=== PATIENT | female | born 1990 | race Caucasian/White ===

== ENCOUNTER 2017-02-17 10:34 | Day surgery (SDC) | payer OTHER ==
[~2017-02-17 10:34] MED LIST: Buffered Lidocaine 0.9% SYRIN* 5 ML/SYR SYRINGE INTRADERM ONE; Famotidine IV* 10 MG/ML 2 ML (20 mg) IV ONE
[2017-02-17 10:44] LABS: Manual Entry Verification ABI0007; UR Preg Internal Control QC Line Present
[2017-02-17] MEDS ORDERED: Famotidine IV* 10 MG/ML 2 ML (20 mg) ONE (11:04)
[2017-02-17] MEDS ORDERED: Buffered Lidocaine 0.9% SYRIN* 5 ML/SYR SYRINGE ONE (11:05)
[2017-02-17] MEDS ORDERED: fentaNYL* 50 MCG/ML 2 ML VIAL (100 MCG VIAL) ONE (12:05)
[2017-02-17] MEDS ORDERED: Midazolam* 1 MG/ML 5 ML VIAL (5 MG) ONE (12:05)
[2017-02-17] MEDS ORDERED: Lidocaine 2% PF * 5 ML VIAL ONE (12:05)
[2017-02-17] MEDS ORDERED: Propofol* 10 MG/ML 20 ML BTL IV PUSH ONE (12:05)
[2017-02-17] MEDS ORDERED: Ondansetron INJ* 2 MG/ML VIAL ONE (12:05)
[2017-02-17] MEDS ORDERED: Oxymetazoline 0.05% NASAL SPR* 15 ML BTL ONE (12:23)
[2017-02-17] MEDS ORDERED: Lidocaine 1.5% EPI 1:200,000* 30 ML SDV ONE (12:23)
[2017-02-17] MEDS ORDERED: Bacitracin OINTMENT* 1 TUBE ONE (12:23)
[2017-02-17] MEDS ORDERED: Lidocaine 1% INJ* 10 MG/ML 30 ML SDV ONE (12:23)
[2017-02-17] MEDS ORDERED: Lidocaine 4% TOPICAL* 50 ML TOP.SOLN ONE (12:23)
[2017-02-17] MEDS ORDERED: Levalbuterol 0.63MG/3ML NEB INH PRN (12:39)
[2017-02-17] MEDS ORDERED: DiMENhydriNATE IV* 50 MG/ML VIAL IV PUSH PRN (12:39)
[2017-02-17] MEDS ORDERED: fentaNYL* 50 MCG/ML 2 ML VIAL (100 MCG VIAL) IV PRN (12:39)
[2017-02-17 14:12] VITALS: BP 149/88
--- NOTE | 2017-02-18 01:17 | OP ---
DATE OF OPERATION: 02/17/17 - [facility] DATE OF : 86 SURGEON: Dontae Valentine MD ANESTHESIOLOGIST: Mathew Morgan MD ANESTHESIA: General laryngeal mask airway anesthesia. PRE-OP DIAGNOSES: Bilateral inferior turbinate hypertrophy. POST-OP DIAGNOSES: Bilateral inferior turbinate hypertrophy. OPERATIVE PROCEDURE: Bilateral inferior turbinate reductions using the nasal debrider under general laryngeal mask airway anesthesia. COMPLICATIONS: None. DISPOSITION: Good. SPECIMENS: None. BLOOD LOSS: Minimal. DESCRIPTION OF PROCEDURE: The patient was taken to the operating room, placed in the supine positron on the operating table, maintained with laryngeal mask airway anesthesia. Nose was packed bilaterally with cottonoids impregnated with oxymetazoline and 1% lidocaine. After several minutes, these were removed and inferior turbinates were injected with lidocaine with epinephrine. Incisions were made in the anterior-inferior turbinates and the caudal elevator was used to elevate the mucosa off the bone, and the turbinate debrider blade was inserted in this pocket and the submucosa was debrided. The inferior turbinates were then outfractured. The patient tolerated this well, no complications, and transferred to recovery room in stable condition. [id number]/CPS #: [id number] MTDD
== END 2017-02-17 13:55 | disposition home or self-care (01) ==
LOC: OR 10:34
PROVIDERS: ATTEND Otolaryngology
DX: J34.3 Hypertrophy of nasal turbinates (principal); R09.81 Nasal congestion; I10 Essential (primary) hypertension; G47.33 Obstructive sleep apnea (adult) (pediatric); J45.909 Unspecified asthma, uncomplicated
CPT/HCPCS: 81025; A9270-GY; J2001; J2250; J2405; J2704; J3010

== ENCOUNTER 2017-03-07 10:25 | Emergency (ER) | payer OTHER ==
[2017-03-07] MEDS ORDERED: Morphine INJ* 4 MG/ML 1 ML SYRINGE IV ONE (11:36)
[2017-03-07] MEDS ORDERED: Ondansetron INJ* 2 MG/ML VIAL IV ONE (11:36)
[2017-03-07] MEDS ORDERED: NS 0.9% 1000 ML* 1,000 ML IV ONE (11:36)
[2017-03-07 11:55] LABS: Hematocrit 44 % (35-47); Hemoglobin 14.7 g/dl (12.0-16.0); Mean Corpuscular HGB Conc 33 g/dl (31-36); Mean Corpuscular Hemoglobin 29 pg (27-31); Mean Corpuscular Volume 89 fL (80-97); Mean Platelet Volume 8 um3 (7.4-10.4); Red Cell Distribution Width 14 % (10.5-15); White Blood Count 13.1 10^3/ul (3.5-10.8)
--- NOTE | 2017-03-07 12:13 | RAD ---
Indication: Right upper quadrant pain. Real-time sonography of the right upper quadrant was performed. The liver is normal in size. No focal lesions or intrahepatic ductal dilatation is noted. The common duct measures 3 mm. The gallbladder demonstrates multiple echogenic foci consistent with cholelithiasis. No pericholecystic fluid or wall thickening is identified. The right kidney measures 11.3 x 4.7 x 4.5 cm. No hydronephrosis is noted. The pancreas demonstrates no mass or pancreatic duct dilatation. Aorta and inferior vena cava are unremarkable. IMPRESSION: Cholelithiasis without evidence of biliary ductal dilatation.
[2017-03-07 12:14] LABS: ALT 27 U/L (7-52); AST 18 U/L (13-39); Albumin 4.4 g/dL (3.2-5.2); Alkaline Phosphatase 61 U/L (34-104); Anion Gap 7 mmol/L (2-11); BUN/Creatinine Ratio 10.6 (8-20); Blood Urea Nitrogen 10 mg/dL (6-24); C Reactive Protein 7.93 mg/L (< 5.00); CO2 Carbon Dioxide 25 mmol/L (22-32); Calcium 9.4 mg/dL (8.6-10.3); Chloride 106 mmol/L (101-111); EGFR African American 91.2 (>60); EGFR Non-African American 70.9 (>60); Globulin 2.7 g/dL (2-4); Glucose 94 mg/dL (70-100); Lipase 20 U/L (11.0-82.0); Potassium 3.9 mmol/L (3.5-5.0); Sodium 138 mmol/L (133-145); Total Protein 7.1 g/dL (6.4-8.9)
[2017-03-07 12:34] LABS: Urine Bilirubin Negative (Negative); Urine Glucose Negative (Negative); Urine Nitrite Negative (Negative)
--- NOTE | 2017-03-07 13:08 | ED ---
Julio César Bowser SooYoung, scribed for Marian Smith MD on 03/07/17 at 1158 . Abdominal Pain/Female - HPI Summary HPI Summary: A 26 y/o F presents to ED with c/o acute on chronic RUQ abd pain onset last night. Pert PMHx: chronic abd pain occurring approx once a week. She has known gallbladder stones but they didn't warrant surgical removal. Last night, she ate pasta with meat sauce at approx 1700 and pain came on around 1800. At onset , she rates the pain as 6-7 out of 10. Currently, it's 9/10 and non-radiating. Associated sx: vomiting. Denies dysuria, diarrhea. Aggravating factors: eating greasy/fatty foods. PCP is Dr. Estes. - History of Current Complaint Chief Complaint: EDAbdPain Stated Complaint: UPPER RT ABD PAIN Time Seen by Provider: 03/07/17 11:36 Hx Obtained From: Patient Onset/Duration: Gradual Onset, Lasting Hours - onset yesterdat approx 1800, Still Present Timing: Constant Severity Initially: Moderate Severity Currently: Severe Pain Intensity: 9 Pain Scale Used: 0-10 Numeric Location: Discrete At: RUQ Radiates: No Associated Signs and Symptoms: Positive: Vomiting. Negative: Urinary Symptoms, Diarrhea Allergies/Adverse Reactions: Allergies Allergy/AdvReac Type Severity Reaction Status Date / Time Azithromycin [From Zithromax] Allergy Intermediate Rash Verified 02/17/17 11:12 Carbamazepine [From Tegretol] Allergy Intermediate Rash Verified 02/17/17 11:12 Erythromycin Allergy Intermediate Rash Verified 02/17/17 11:12 Fluconazole [From Diflucan] Allergy Intermediate Rash Verified 02/17/17 11:12 Sulfa Drugs Allergy Intermediate Rash Verified 02/17/17 11:12 LATEX Allergy Intermediate Itching Uncoded 02/17/17 11:12 PMH/Surg Hx/FS Hx/Imm Hx Previously Healthy: No Cardiovascular History: Reports: Other Cardiovascular Problems/Disorders - heart murmur Respiratory History: Reports: Hx Asthma, Hx Sleep Apnea - HAS NOT HAD THE SLEEP STUDY SEEN BY SLEEP SPEC SUSPECTED JOSE GI History: Reports: Hx Gastroesophageal Reflux Disease - ON MEDS PT. STATES CONTROLLED WITH DIET, Hx Irritable Bowel, Hx Ulcer - 2012 PT. 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, laparoscopy 2013 Hx Anesthesia Reactions: No Infectious Disease History: No Infectious Disease History: Denies: Traveled Outside the [place] in Last 30 Days - Family History Known Family History: Positive: Other - neg: gallbladder dz - Social History Occupation: Unemployed Lives: With Family - alone Alcohol Use: Rare Alcohol Amount: MIKES HARD LEMONADE 6 PER MONTH Hx Substance Use: Yes Substance Use Type: Reports: Marijuana Substance Use Comment - Amount & Last Used: SMOKES POT 1- 2 X DAY Hx Tobacco Use: No Smoking Status (MU): Never Smoked Tobacco Review of Systems Negative: Fever Positive: Abdominal Pain, Vomiting. Negative: Diarrhea Negative: dysuria All Other Systems Reviewed And Are Negative: Yes Physical Exam Triage Information Reviewed: Yes Vital Signs On Initial Exam: Initial Vitals Temp Pulse Resp BP Pulse Ox 98.2 F 91 20 138/90 98 03/07/17 10:31 03/07/17 10:31 03/07/17 10:31 03/07/17 10:31 03/07/17 10:31 Vital Signs Reviewed: Yes Appearance: Positive: Well-Appearing, Pain Distress - mild, Obese Skin: Positive: Warm, Skin Color Reflects Adequate Perfusion, Dry Eyes: Positive: EOMI, BAM Neck: Positive: Supple, Nontender Respiratory/Lung Sounds: Positive: Clear to Auscultation, Breath Sounds Present. Negative: Rales, Rhonchi, Wheezes Cardiovascular: Positive: RRR. Negative: Murmur, Rub, Other - neg: gallop Abdomen Description: Positive: Soft, Other: - pos: RUQ tenderness; neg: rebound. Negative: Distended, Guarding Bowel Sounds: Positive: Present Musculoskeletal: Positive: Strength/ROM Intact. Negative: Edema Left, Edema Right Neurological: Positive: Sensory/Motor Intact, Alert, Oriented to Person Place, Time, CN Intact II-III Psychiatric: Positive: Affect/Mood Appropriate Diagnostics - Vital Signs Vital Signs Temp Pulse Resp BP Pulse Ox 03/07/17 11:29 98.8 F 78 16 136/71 100 03/07/17 10:31 98.2 F 91 20 138/90 98 - Laboratory Lab Results: Lab Results 03/07/17 03/07/17 03/07/17 Range/Units 11:42 11:42 12:18 WBC 13.1 H (3.5-10.8) 10^3/ul RBC 5.00 (4.0-5.4) 10^6/ul Hgb 14.7 (12.0-16.0) g/dl Hct 44 (35-47) % MCV 89 (80-97) fL MCH 29 (27-31) pg MCHC 33 (31-36) g/dl RDW 14 (10.5-15) % Plt Count 224 (150-450) 10^3/ul MPV 8 (7.4-10.4) um3 Neut % (Auto) 76.3 (38-83) % Lymph % (Auto) 17.9 L (25-47) % [place] % (Auto) 5.0 (1-9) % Eos % (Auto) 0.4 (0-6) % Baso % (Auto) 0.4 (0-2) % Absolute Neuts (auto) 10.0 H (1.5-7.7) 10^3/ul Absolute Lymphs (auto) 2.3 (1.0-4.8) 10^3/ul Absolute Monos (auto) 0.7 (0-0.8) 10^3/ul Absolute Eos (auto) 0 (0-0.6) 10^3/ul Absolute Basos (auto) 0 (0-0.2) 10^3/ul Absolute Nucleated RBC 0 10^3/ul Nucleated RBC % 0 Sodium 138 (133-145) mmol/L Potassium 3.9 (3.5-5.0) mmol/L Chloride 106 (101-111) mmol/L Carbon Dioxide 25 (22-32) mmol/L Anion Gap 7 (2-11) mmol/L BUN 10 (6-24) mg/dL Creatinine 0.94 (0.51-0.95) mg/dL Est GFR ( Amer) 91.2 (>60) Est GFR (Non-Af Amer) 70.9 (>60) BUN/Creatinine Ratio 10.6 (8-20) Glucose 94 (70-100) mg/dL Calcium 9.4 (8.6-10.3) mg/dL Total Bilirubin 0.40 (0.2-1.0) mg/dL AST 18 (13-39) U/L ALT 27 (7-52) U/L Alkaline Phosphatase 61 (34-104) U/L C-Reactive Protein 7.93 H (< 5.00) mg/L Total Protein 7.1 (6.4-8.9) g/dL Albumin 4.4 (3.2-5.2) g/dL Globulin 2.7 (2-4) g/dL Albumin/Globulin Ratio 1.6 (1-3) Lipase 20 (11.0-82.0) U/L Beta HCG, Quant < 0.60 mIU/mL Urine Color Yellow Urine Appearance Clear Urine pH 5.0 (5-9) Ur Specific [place] 1.018 (1.010-1.030) Urine Protein Negative (Negative) Urine Ketones Negative (Negative) Urine Blood Negative (Negative) Urine Nitrate Negative (Negative) Urine Bilirubin Negative (Negative) Urine Urobilinogen Negative (Negative) Ur Leukocyte Esterase Negative (Negative) Urine Glucose Negative (Negative) Result Diagrams: 03/07/17 11:42 03/07/17 11:42 Lab Statement: Any lab studies that have been ordered have been reviewed, and results considered in the medical decision making process. - Ultrasound No standard instances Ultrasound Interpretation: Positive (See Comments) - GALLBLADDER U/S IMPRESSION : Cholelithiasis without evidence of biliary ductal dilation. Ultrasound Interpretation Completed By: Radiologist Abdominal Pain Fem Course/Dx - Course Course Of Treatment: 26 yo obese female with long hx of gallstones and what seems to be gb pain with onset of pain last night. She was unaware that she could electively have the gb out, her labs essentially look good with a sl elevation in her wbc to 13 but with normal lfts and her gb ultrasound shows stones without signs of inflammation her urine is normal and her kidney on u/s was normal. She is being referred to general surgery and was given nausea and pain meds for outpt use - Diagnoses Provider Diagnoses: Biliary colic Discharge - Discharge Plan Condition: Stable Disposition: HOME Prescriptions: HYDROcodone/ACETAMIN 5-325 MG* [[place] 5-325 TAB*] 1 tab PO Q4H PRN #14 tab MDD 6 PRN Reason: Pain Ondansetron ODT TAB* [Zofran 4 MG Odt TAB*] 4 mg PO Q6H PRN #20 tab.odt PRN Reason: Nausea Patient Education Materials: Hydrocodone/Acetaminophen (By mouth), Ondansetron (By mouth), Biliary Colic (ED) Referrals: Young Borden MD [Primary Care Provider] - Eliana Keys MD [Medical Doctor] - 2 Days Additional Instructions: Follow up with Dr. Keys, surgery, in the next two days. Please return to the ED if you experience new or worsening symptoms. The documentation as recorded by the Julio César guerrero SooYoung accurately reflects the service I personally performed and the decisions made by me, Marian Smith MD.
[2017-03-07] MEDS ORDERED: HYDROmorphone* 1 MG/ML 1 ML SYR IV ONE (13:33)
[2017-03-07] MEDS ORDERED: Ketorolac INJ* 30 MG/ML 1 ML VIAL IV ONE (13:33)
[2017-03-07 15:57] VITALS: BP 146/88
== END 2017-03-07 14:24 | disposition home or self-care (01) ==
LOC: ED 10:25
DX: K80.50 Calculus of bile duct without cholangitis or cholecystitis without obstruction (principal); R10.11 Right upper quadrant pain; R11.10 Vomiting, unspecified
CPT/HCPCS: 36415; 76705; 80053; 81003; 83690; 84702; 85025; 86140; 96374; 96375; 99283; J1170; J1885; J2270; J2405

== ENCOUNTER 2017-03-09 08:30 | Emergency (ER) | payer OTHER ==
[2017-03-09] MEDS ORDERED: Ondansetron INJ* 2 MG/ML VIAL IV ONE (08:43)
[2017-03-09] MEDS ORDERED: NS 0.9% 1000 ML* 1,000 ML IV ONE (08:43)
[2017-03-09] MEDS ORDERED: Morphine INJ* 4 MG/ML 1 ML SYRINGE IV ONE (08:43)
[2017-03-09 09:19] LABS: Hematocrit 39 % (35-47); Hemoglobin 12.9 g/dl (12.0-16.0); Mean Corpuscular HGB Conc 33 g/dl (31-36); Mean Corpuscular Hemoglobin 29 pg (27-31); Mean Corpuscular Volume 89 fL (80-97); Mean Platelet Volume 8 um3 (7.4-10.4); Red Blood Count 4.42 10^6/ul (4.0-5.4); Red Cell Distribution Width 14 % (10.5-15); White Blood Count 7.7 10^3/ul (3.5-10.8)
[2017-03-09 09:20] LABS: Add Diff/Slide Review? Slide Review Added; Comments Flag Yes
[2017-03-09 09:38] LABS: Albumin 3.8 g/dL (3.2-5.2); C Reactive Protein 67.11 mg/L (< 5.00); Calcium 8.9 mg/dL (8.6-10.3); EGFR African American 105.3 (>60); EGFR Non-African American 81.9 (>60); Globulin 2.6 g/dL (2-4); Potassium 3.9 mmol/L (3.5-5.0); Total Bilirubin 0.3 mg/dL (0.2-1.0); Total Protein 6.4 g/dL (6.4-8.9)
[2017-03-09 09:39] LABS: Immature Granulocytes 2 % (0-9); Myelocytes % 2 % (0-1); Neutrophil % 68 % (38-83); Reactive Lymph % 1 % (0-6)
[2017-03-09 09:40] LABS: RBC Morphology Normal (Normal)
[2017-03-09 10:26] LABS: Urine Bilirubin Negative (Negative); Urine Glucose Negative (Negative); Urine Nitrite Negative (Negative)
[2017-03-09 11:27] VITALS: BP 146/95
--- NOTE | 2017-03-09 17:50 | ED ---
Lexie Bowser Edward, scribed for Darius Wood MD on 03/09/17 at 0844 . Abdominal Pain/Female - HPI Summary HPI Summary: 26 y/o female presents to ED c/o ABD pain starting at 03/06 at 19:00. Pt c/o stabbing pain @ the LUQ and a throbbing pain in the RUQ and RLQ. The pain in the upper ABD radiates to the back. The pain is rated at a 9.5/10. Associated sx : blood when she wipes after urination, N/V (this morning). Pt had an US of her gallbladder and was dx with cholelithiasis and has surgery scheduled in three days. - History of Current Complaint Chief Complaint: EDAbdPain Stated Complaint: ABD PAIN Hx Obtained From: Patient Onset/Duration: Lasting Days Severity Currently: Severe Pain Intensity: 10 Pain Scale Used: 0-10 Numeric Location: Discrete At: RUQ, Discrete At: RLQ, Discrete At: LUQ Radiates: Yes Radiates to: Back Character: Other: - Stabbing, throbbing Associated Signs and Symptoms: Positive: Urinary Symptoms - Blood after she wipes, Nausea, Vomiting Allergies/Adverse Reactions: Allergies Allergy/AdvReac Type Severity Reaction Status Date / Time Azithromycin [From Zithromax] Allergy Intermediate Rash Verified 02/17/17 11:12 Carbamazepine [From Tegretol] Allergy Intermediate Rash Verified 02/17/17 11:12 Erythromycin Allergy Intermediate Rash Verified 02/17/17 11:12 Fluconazole [From Diflucan] Allergy Intermediate Rash Verified 02/17/17 11:12 Sulfa Drugs Allergy Intermediate Rash Verified 02/17/17 11:12 LATEX Allergy Intermediate Itching Uncoded 02/17/17 11:12 PMH/Surg Hx/FS Hx/Imm Hx Previously Healthy: No Cardiovascular History: Reports: Other Cardiovascular Problems/Disorders - heart murmur Respiratory History: Reports: Hx Asthma, Hx Sleep Apnea - HAS NOT HAD THE SLEEP STUDY SEEN BY SLEEP SPEC SUSPECTED JOSE GI History: Reports: Hx Gastroesophageal Reflux Disease - ON MEDS PT. STATES CONTROLLED WITH DIET, Hx Irritable Bowel, Hx Ulcer - 2012 PT. 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 ACEVES Psychiatric History: Reports: Hx Anxiety - Surgical History Surgery Procedure, Year, and Place: bladder distention for interstitial [id number], laparoscopy 2013 Hx Anesthesia Reactions: No Infectious Disease History: No Infectious Disease History: Denies: Traveled Outside the [place] in Last 30 Days - Family History Known Family History: Positive: Other - neg: gallbladder dz - Social History Alcohol Use: Rare Alcohol Amount: MIKES HARD LEMONADE 6 PER MONTH Hx Substance Use: Yes Substance Use Type: Reports: Marijuana Substance Use Comment - Amount & Last Used: SMOKES POT 1- 2 X DAY Hx Tobacco Use: No Smoking Status (MU): Never Smoked Tobacco Review of Systems Constitutional: Negative Eyes: Negative ENT: Negative Cardiovascular: Negative Respiratory: Negative Positive: Abdominal Pain, Vomiting, Nausea Genitourinary: Other - Blood after she urinates Musculoskeletal: Negative Skin: Negative Neurological: Negative Psychological: Normal All Other Systems Reviewed And Are Negative: Yes Physical Exam - Summary Physical Exam Summary: VITAL SIGNS: Reviewed. GENERAL: Patient is a well-developed and nourished female who is lying comfortable in the stretcher. ~Patient is not in any acute respiratory distress. HEAD AND FACE: Normocephalic and atraumatic. EYES: PERRLA, EOMI x 2, No injected conjunctiva. EARS: Hearing grossly intact. Ear canals and tympanic membranes are WNL. MOUTH: Oropharynx within normal limits. NECK: Supple, trachea is midline, no adenopathy, no JVD. CHEST: Symmetric, no tenderness at palpation LUNGS: Clear to auscultation bilaterally. No wheezing or crackles. CVS: RRR, S1 and S2 present, no murmurs or gallops appreciated. ABDOMEN: Soft, RUQ and LUQ tenderness. There is no CVA tenderness. No signs of distention. Positive bowel sounds. No rebound no guarding, and no masses palpated. No abdominal bruit or pulsations. EXTREMITIES: FROM in all major joints, no edema, no cyanosis or clubbing. NEURO: Alert and oriented x 3. No acute neurological deficits. Speech is normal. SKIN: Dry and warm Triage Information Reviewed: Yes Vital Signs On Initial Exam: Initial Vitals Temp Pulse Resp BP Pulse Ox 97.4 F 96 15 141/94 97 03/09/17 08:31 03/09/17 08:31 03/09/17 08:31 03/09/17 08:31 03/09/17 08:31 Vital Signs Reviewed: Yes Diagnostics - Vital Signs Vital Signs Temp Pulse Resp BP Pulse Ox 03/09/17 08:31 97.4 F 96 15 141/94 97 - Laboratory Lab Results: Lab Results 03/09/17 03/09/17 03/09/17 Range/Units 09:04 09:04 09:04 WBC 7.7 (3.5-10.8) 10^3/ul RBC 4.42 (4.0-5.4) 10^6/ul Hgb 12.9 (12.0-16.0) g/dl Hct 39 (35-47) % MCV 89 (80-97) fL MCH 29 (27-31) pg MCHC 33 (31-36) g/dl RDW 14 (10.5-15) % Plt Count 217 (150-450) 10^3/ul MPV 8 (7.4-10.4) um3 Immature Gran % (Auto) 2 (0-9) % Neut % (Auto) 66.9 (38-83) % Lymph % (Auto) 26.5 (25-47) % [place] % (Auto) 5.6 (1-9) % Eos % (Auto) 0.5 (0-6) % Baso % (Auto) 0.5 (0-2) % Absolute Neuts (auto) 5.1 (1.5-7.7) 10^3/ul Absolute Lymphs (auto) 2.0 (1.0-4.8) 10^3/ul Absolute Monos (auto) 0.4 (0-0.8) 10^3/ul Absolute Eos (auto) 0 (0-0.6) 10^3/ul Absolute Basos (auto) 0 (0-0.2) 10^3/ul Absolute Nucleated RBC 0 10^3/ul Neutrophils % 68 (38-83) % Lymphocytes % 25 (25-47) % Reactive Lymphs % 1 (0-6) % Monocytes % 4 (0-13) % Myelocytes % 2 H (0-1) % Nucleated RBC % 0 Normal RBC Morphology Normal (Normal) Sodium 139 (133-145) mmol/L Potassium 3.9 (3.5-5.0) mmol/L Chloride 108 (101-111) mmol/L Carbon Dioxide 25 (22-32) mmol/L Anion Gap 6 (2-11) mmol/L BUN 10 (6-24) mg/dL Creatinine 0.83 (0.51-0.95) mg/dL Est GFR ( Amer) 105.3 (>60) Est GFR (Non-Af Amer) 81.9 (>60) BUN/Creatinine Ratio 12.0 (8-20) Glucose 98 (70-100) mg/dL Lactic Acid 0.6 (0.5-2.0) mmol/L Calcium 8.9 (8.6-10.3) mg/dL Total Bilirubin 0.30 (0.2-1.0) mg/dL AST 16 (13-39) U/L ALT 21 (7-52) U/L Alkaline Phosphatase 47 (34-104) U/L C-Reactive Protein 67.11 H (< 5.00) mg/L Total Protein 6.4 (6.4-8.9) g/dL Albumin 3.8 (3.2-5.2) g/dL Globulin 2.6 (2-4) g/dL Albumin/Globulin Ratio 1.5 (1-3) Lipase 19 (11.0-82.0) U/L Beta HCG, Quant 0.63 mIU/mL Urine Color Urine Appearance Urine pH (5-9) Ur Specific [place] (1.010-1.030) Urine Protein (Negative) Urine Ketones (Negative) Urine Blood (Negative) Urine Nitrate (Negative) Urine Bilirubin (Negative) Urine Urobilinogen (Negative) Ur Leukocyte Esterase (Negative) Urine Glucose (Negative) 03/09/17 Range/Units 10:15 WBC (3.5-10.8) 10^3/ul RBC (4.0-5.4) 10^6/ul Hgb (12.0-16.0) g/dl Hct (35-47) % MCV (80-97) fL MCH (27-31) pg MCHC (31-36) g/dl RDW (10.5-15) % Plt Count (150-450) 10^3/ul MPV (7.4-10.4) um3 Immature Gran % (Auto) (0-9) % Neut % (Auto) (38-83) % Lymph % (Auto) (25-47) % [place] % (Auto) (1-9) % Eos % (Auto) (0-6) % Baso % (Auto) (0-2) % Absolute Neuts (auto) (1.5-7.7) 10^3/ul Absolute Lymphs (auto) (1.0-4.8) 10^3/ul Absolute Monos (auto) (0-0.8) 10^3/ul Absolute Eos (auto) (0-0.6) 10^3/ul Absolute Basos (auto) (0-0.2) 10^3/ul Absolute Nucleated RBC 10^3/ul Neutrophils % (38-83) % Lymphocytes % (25-47) % Reactive Lymphs % (0-6) % Monocytes % (0-13) % Myelocytes % (0-1) % Nucleated RBC % Normal RBC Morphology (Normal) Sodium (133-145) mmol/L Potassium (3.5-5.0) mmol/L Chloride (101-111) mmol/L Carbon Dioxide (22-32) mmol/L Anion Gap (2-11) mmol/L BUN (6-24) mg/dL Creatinine (0.51-0.95) mg/dL Est GFR ( Amer) (>60) Est GFR (Non-Af Amer) (>60) BUN/Creatinine Ratio (8-20) Glucose (70-100) mg/dL Lactic Acid (0.5-2.0) mmol/L Calcium (8.6-10.3) mg/dL Total Bilirubin (0.2-1.0) mg/dL AST (13-39) U/L ALT (7-52) U/L Alkaline Phosphatase (34-104) U/L C-Reactive Protein (< 5.00) mg/L Total Protein (6.4-8.9) g/dL Albumin (3.2-5.2) g/dL Globulin (2-4) g/dL Albumin/Globulin Ratio (1-3) Lipase (11.0-82.0) U/L Beta HCG, Quant mIU/mL Urine Color Yellow Urine Appearance Clear Urine pH 7.0 (5-9) Ur Specific [place] 1.012 (1.010-1.030) Urine Protein Negative (Negative) Urine Ketones Negative (Negative) Urine Blood Negative (Negative) Urine Nitrate Negative (Negative) Urine Bilirubin Negative (Negative) Urine Urobilinogen Negative (Negative) Ur Leukocyte Esterase Negative (Negative) Urine Glucose Negative (Negative) Result Diagrams: 03/09/17 09:04 03/09/17 09:04 Lab Statement: Any lab studies that have been ordered have been reviewed, and results considered in the medical decision making process. Abdominal Pain Fem Course/Dx - Course Course Of Treatment: 26 y/o female presents to ED c/o ABD pain starting at at 19:00. Pt c/o stabbing pain @ the LUQ and a throbbing pain in the RUQ and RLQ. The pain in the upper ABD radiates to the back. The pain is rated at a 9.5/ 10. Associated sx: blood when she wipes after urination, N/V (this morning). Pt had an US of her gallbladder and was dx with cholelithiasis and has surgery scheduled in three days. Test results without any significant abnormalities. In the ED course the pt was given IV fluids, Zofran for N/V, and morphine for pain. After medications the sx improved. Discussed with Dr Keys who came to examine the pt with her PA. After the assessment, Dr. Keys believes she can be d/c home with f/u with Dr. Keys on Wednesday for her scheduled cholecystectomy. Dr. Keys wants to give the patient a prescription for Zofran and Percocet. The pt is hemodynamically stable and A&Ox3. The pt is aggregable with this plan. - Diagnoses Provider Diagnoses: Abdominal pain Discharge - Discharge Plan Condition: Stable Disposition: HOME Prescriptions: HYDROcodone/ACETAMIN 5-325 MG* [[place] 5-325 TAB*] 1 tab PO Q4H PRN #14 tab MDD 6 PRN Reason: Pain Ondansetron ODT TAB* [Zofran 4 MG Odt TAB*] 4 mg PO Q6H PRN #20 tab.odt PRN Reason: Nausea Patient Education Materials: Abdominal Pain (ED) Referrals: Young Borden MD [Primary Care Provider] - 3 Days (PLEASE F/U IN 2-3 DAYS) The documentation as recorded by the Lexie guerrero Edward accurately reflects the service I personally performed and the decisions made by me, Darius Wood MD.
== END 2017-03-09 11:27 | disposition home or self-care (01) ==
LOC: ED 08:30
DX: R10.9 Unspecified abdominal pain (principal); R11.2 Nausea with vomiting, unspecified
CPT/HCPCS: 36415; 80053; 81003; 83605; 83690; 84702; 85025; 86140; 96374; 96375; 99283; J2270; J2405

== ENCOUNTER 2017-03-12 13:10 | Day surgery (SDC) | payer OTHER ==
--- NOTE | 2017-03-10 16:42 | HP ---
CC: Grey Estes MD * HISTORY AND PHYSICAL: DATE OF ADMISSION: 03/12/17 PATIENT OF: Dr. Eliana Keys * (DICTATED BY MADHU MELÉNDEZ) CHIEF COMPLAINT: Symptomatic cholelithiasis. HISTORY OF PRESENT ILLNESS: Naomy is a pleasant 26-year-old female, who was seen in the office earlier this week for evaluation of right upper quadrant abdominal pain. The patient apparently was seen in the emergency room over the weekend after she had a breakfast consistent of sausage gravy and biscuits. She also described dinner the night before with pizza and wings. She felt severe abdominal pain more localized to right upper quadrant on that Wednesday for which she went to the emergency room for further evaluation. She has a known history of cholelithiasis that was diagnosed back in 2007 with similar symptoms using a sonogram back then. The patient reports similar episode on and off over the past 9 years, but nothing was as severe and consistent as it felt last weekend. She was seen in the office on the following Wednesday by Dr. Keys and arrangement was done for her to have surgery later this week given her gallbladder symptoms. The patient unfortunately developed more right upper quadrant discomfort with nausea and vomiting last night for which she went to the emergency room for further evaluation. She was given analgesics and Zofran for nausea and essentially felt better and was discharged home in a stable condition. She presented to the office today to discuss surgery that is scheduled to be performed by Dr. Keys on 03/12/17. Since her discharge to home , she denies any recurrent abdominal pain, nausea, or vomiting. She described pain episodes as being mostly postprandial especially after fatty meals, localized to be epigastric and right upper quadrant area with radiation to the back. She also described associated nausea and vomiting and sometimes chills, but denies any fever, changes in the color of stool or urine or jaundice. She had an ultrasound most recently past weekend that revealed evidence of cholelithiasis, but there was no evidence of acute cholecystitis or biliary dilatation. PAST MEDICAL HISTORY: Significant for morbid obesity, anxiety and depression, gastroesophageal reflux disease with last EGD performed about a year ago. She also has a history of migraine headaches, endometriosis, and recurrent sinus infection, and interstitial cystitis. PAST SURGICAL HISTORY: Significant for diagnostic laparoscopy due to her history of endometriosis back in 2012. She also had a sinus surgery earlier this year. CURRENT MEDICATIONS: Her medications at home include: 1. Buspirone 30 mg 2 tablets p.o. b.i.d. 2. Elmiron 100 mg 1 capsule 3 times daily. 3. Hydroxyzine 25 mg p.o. daily. 4. Lamotrigine 100 mg daily. 5. Tizanidine 4 mg 1 tablet by mouth every 6 hours. 6. Ziprasidone 80 mg b.i.d. 7. Topiramate 100 mg daily. 8. Amphetamine 20 mg p.o. daily. 9. ProAir 108 mcg 2 puffs by mouth every 4 hours as needed for shortness of breath. 10. Gbny-eex-zffcsvx allergy relief 180 mg daily. 11. Ipratropium 0.06% use 1 spray in each nostril once daily. 11. Flovent Diskus 250 mcg twice a day. 12. Zofran 4 mg once every 6 hours as needed for nausea. 13. Lortab 5/325 one tablet by mouth every 4 hours as needed for pain. ALLERGIES: Multiple allergies including AZITHROMYCIN, CARBAMAZEPINE, ERYTHROMYCIN, FLUCONAZOLE, SULFA DRUGS, LATEX, TEGRETOL, and ADHESIVE TAPE. FAMILY HISTORY: Noncontributory. SOCIAL HISTORY: The patient is a nonsmoker, who denies alcohol intake. She works as a therapeutic activities services worker and caffeine intake is minimal. REVIEW OF SYSTEMS: See HPI, otherwise negative. She denies any headache, dizziness, blurred vision, or trouble swallowing. No sore throat, shortness of breath, wheezing, or chest pain. She denies any back pain, flank pain, dysuria , hematuria, or urinary frequency. She admits to intermittent right upper quadrant abdominal pain usually postprandial after fatty meals with associated nausea and vomiting, but denies any changes in bowel habits or color of stool or urine. No fever, chills, night sweats, or recent weight loss. PHYSICAL EXAMINATION GENERAL: She is a pleasant, morbidly obese young female, appears healthy and in no acute distress or discomfort at the time of dictation. VITAL SIGNS: Her vitals today revealed blood pressure of 122/86, pulse of 72, temperature of 99.0, respirations 18. She is 5 feet and 7 inches and weighs 290 pounds with BMI of 45. HEENT: Sclerae anicteric. PERRLA. EOMs intact. Oropharynx is pink and moist with no exudate. NECK: Supple. Trachea midline. No cervical adenopathy or thyromegaly. LUNGS: Clear to auscultation bilaterally. No rales, wheezes, or rhonchi noted. HEART: Regular rate and rhythm. Normal S1 and S2 without rubs, murmurs, or gallops. BACK: Normal curvature. No CVA tenderness. BREAST: Exam deferred at this time. ABDOMEN: Obese, round, and nondistended. There is mild right upper quadrant tenderness on deep palpation, but no rigidity or rebound tenderness noted. There are no hernias, masses, or hepatosplenomegaly. Estes sign was negative. EXTREMITIES: Without cyanosis, clubbing, or edema. NEUROLOGIC: Grossly intact. RECTAL: Exam deferred at this time. IMPRESSION: A 26-year-old female with known history of cholelithiasis and intermittent postprandial right upper quadrant abdominal pain consistent with biliary colic and symptomatic cholelithiasis. PLAN: We went on and discussed with the patient proceeding with surgery. She is scheduled for a laparoscopic cholecystectomy by Dr. Keys on 03/12/17. The rationale indications, risks, and benefits of surgery were discussed with her today. Risks include but not limited to infection, bleeding, or injury to adjacent structures. She seems to understand and wishes to proceed with surgery given her ongoing symptoms and recent ER visits. We will follow her up accordingly. MADHU MELÉNDEZ [id number]/[facility] #: [id number] ALYCIA
[~2017-03-12 13:10] MED LIST changes: +Dexamethasone IV* 4 MG/ML 1 ML (4 MG) IV SLOW PU ONE
[2017-03-12] MEDS ORDERED: Dexamethasone IV* 4 MG/ML 1 ML (4 MG) ONE (13:22)
[2017-03-12] MEDS ORDERED: ceFAZolin 2 GM PREMIX (*) 50 ML IVPB ONE (13:23)
[2017-03-12] MEDS ORDERED: Famotidine IV* 10 MG/ML 2 ML (20 mg) ONE (13:23)
[2017-03-12] MEDS ORDERED: Buffered Lidocaine 0.9% SYRIN* 5 ML/SYR SYRINGE ONE (13:23)
[2017-03-12] MEDS ORDERED: Bupivacaine 0.25% SDV* 30 ML ONE (16:21)
[2017-03-12] MEDS ORDERED: Bupivacaine 0.5% W/EPI SDV* 30 ML VIAL ONE (16:21)
[2017-03-12] MEDS ORDERED: fentaNYL* 50 MCG/ML 5 ML VIAL (250 MCG VIAL) ONE ×2 (16:28→18:24)
[2017-03-12] MEDS ORDERED: Succinylcholine* 20 MG/ML 10 ML VIAL ONE (16:28)
[2017-03-12] MEDS ORDERED: Midazolam* 1 MG/ML 5 ML VIAL (5 MG) ONE (16:28)
[2017-03-12] MEDS ORDERED: Rocuronium* 10 MG/ML VIAL ONE (16:28)
[2017-03-12] MEDS ORDERED: Lidocaine 2% PF * 5 ML VIAL ONE (16:28)
[2017-03-12] MEDS ORDERED: Propofol* 10 MG/ML 20 ML BTL IV PUSH ONE (16:28)
[2017-03-12] MEDS ORDERED: Ketorolac INJ* 30 MG/ML 1 ML VIAL ONE (17:04)
[2017-03-12] MEDS ORDERED: Ondansetron INJ* 2 MG/ML VIAL ONE (17:04)
[2017-03-12] MEDS ORDERED: HYDROmorphone* 1 MG/ML 1 ML SYR IV PRN (17:17)
[2017-03-12] MEDS ORDERED: PROCHLORPERAZINE INJ 5 MG/ML 2 ML VIAL IV PRN (17:17)
[2017-03-12] MEDS ORDERED: Glycopyrrolate IV* 0.2 MG/ML 1 ML VIAL ONE (17:28)
[2017-03-12] MEDS ORDERED: Neostigmine Methylsulfate* 2 MG/2 ML SYRINGE ONE (17:28)
--- NOTE | 2017-03-12 17:48 | SURGPN ---
Brief Operative Note - Surgery Procedures: Procedures INJECT/INFUSE NEC (03/12/13) 03/12/17 Op Note Pre-op dx: symptomatic cholelithiasis Post-op dx: same Procedure: lap choley Surgeon: shelbie Asst: Elina Black Anesth: general EBL: 10 cc complications: none Abx: given pre-op SCDs on during surgery. Pt. tolerated procedure well and was transferred to in a stable condition. CLFoster
[2017-03-12] MEDS ORDERED: PROCHLORPERAZINE INJ 5 MG/ML 2 ML VIAL ONE (18:06)
[2017-03-12] MEDS ORDERED: oxyCODONE/Acetamin 5/325 MG* TAB ONE (18:24)
[2017-03-12] MEDS: fentaNYL* 50 MCG/ML 2 ML VIAL (100 MCG VIAL) IV PRN ×4 (18:28→19:40)
[2017-03-12] MEDS: oxyCODONE/Acetamin 5/325 MG* TAB PO PRN ×2 (18:29→18:30)
[2017-03-12 19:59] VITALS: BP 144/85
--- NOTE | 2017-03-13 06:08 | OP ---
CC: [facility]; Young Borden MD OPERATIVE REPORT: DATE OF OPERATION: 03/12/17 DATE OF : 86 SURGEON: Eliana Keys MD PLANER TAILER: MADHU Burciaga student. PRE-OP DIAGNOSIS: Symptomatic cholelithiasis. POST-OP DIAGNOSIS: Symptomatic cholelithiasis. OPERATIVE PROCEDURE: Laparoscopic cholecystectomy. INDICATIONS: Ms. Cortes is a 26-year-old female who presented to the office with symptomatic cholelithiasis prompting the plan for surgical intervention. DESCRIPTION OF PROCEDURE: She was brought to the operating room and placed on the OR table in a supine position and given general anesthesia. The abdomen was then prepped and draped in the usual sterile fashion. After infiltrating with local anesthetic, an incision as made in the infraumbilical area and subcutaneous tissues divided bluntly. The fascia was grasped and incised and a 0 Biosyn stitch was placed on either side of the fascial incision. A trocar was inserted into the abdomen and the abdomen was insufflated. Then under direct visualization a subxiphoid and 2 right subcostal ports were placed after infiltrating with local anesthetic. The gallbladder was visualized and noted to have some adhesions of omentum to it. These were taken down with primarily blunt dissection. The infundibulum of the gallbladder was grasped and dissection of the cystic duct and cystic artery was undertaken. The structures were encircled and doubly clipped and divided and the gallbladder was taken down from the liver bed using electrocautery. Once it was removed from the liver bed, it was placed in an Endo Catch bag and withdrawn from the abdomen through the subxiphoid port site. This was somewhat difficult due to the patient's body habitus and the gallbladder had to be emptied within the bag in order to allow it to come through the opening. It was handed off as a specimen. The liver bed has small amount of bleeding from it, this was controlled with electrocautery. The right upper quadrant was irrigated with saline. A brief inspection of the rest of the abdomen revealed no obvious abnormalities of the large and small intestine that were visualized, but visualization was limited. The right ovary was seen and noted to be cystic. The left ovary was not seen. All ports were then withdrawn under direct visualization. The previously placed 0-Biosyn was used to close the fascia of the infraumbilical port site and 4-0 Biosyn was used to close the skin of all incisions. Steri-Strips were applied. All sponge and instrument counts were correct. The patient tolerated the procedure well and was transferred to recovery in a stable condition. [id number]/[facility] #: [id number] MTDD
== END 2017-03-12 19:59 | disposition home or self-care (01) ==
LOC: OR 13:10
PROVIDERS: ATTEND Surgery
DX: K80.10 Calculus of gallbladder with chronic cholecystitis without obstruction (principal); E66.01 Morbid (severe) obesity due to excess calories; F41.9 Anxiety disorder, unspecified; F32.9 Major depressive disorder, single episode, unspecified; G43.909 Migraine, unspecified, not intractable, without status migrainosus; Z88.1 Allergy status to other antibiotic agents; Z88.2 Allergy status to sulfonamides; Z88.8 Allergy status to other drugs, medicaments and biological substances; Z68.42 Body mass index [BMI] 45.0-49.9, adult
CPT/HCPCS: 81025; 88304; A9270-GY; J0330; J0690; J0780; J1100; J1885; J2250; J2405; J2704; J3010

== ENCOUNTER 2017-03-28 23:32 | Emergency (ER) | payer OTHER ==
[2017-03-29 01:11] LABS: Hematocrit 40 % (35-47); Hemoglobin 13.1 g/dl (12.0-16.0); Mean Corpuscular HGB Conc 33 g/dl (31-36); Mean Corpuscular Hemoglobin 29 pg (27-31); Mean Corpuscular Volume 88 fL (80-97); Mean Platelet Volume 8 um3 (7.4-10.4); Red Blood Count 4.51 10^6/ul (4.0-5.4); Red Cell Distribution Width 13 % (10.5-15); White Blood Count 8.1 10^3/ul (3.5-10.8)
[2017-03-29 01:22] LABS: Albumin 4.1 g/dL (3.2-5.2); BUN/Creatinine Ratio 11.6 (8-20); Calcium 9.2 mg/dL (8.6-10.3); EGFR Non-African American 78.6 (>60); Globulin 2.5 g/dL (2-4); Potassium 3.8 mmol/L (3.5-5.0); Total Bilirubin 0.2 mg/dL (0.2-1.0); Total Protein 6.6 g/dL (6.4-8.9)
[2017-03-29 01:56] LABS: Urine Bilirubin Negative (Negative); Urine Glucose Negative (Negative); Urine Nitrite Negative (Negative)
[2017-03-29] MEDS ORDERED: DOXYcycline CAP(*) 100 MG PO ONE (02:18)
--- NOTE | 2017-03-29 02:21 | ED ---
Skin Complaint - HPI Summary HPI Summary: 26F presents with wound dehiscence that got worst last night. She had her gallbladder removed laparoscopical on Mar [address] Keys. Her wound became infected last week so she was placed on keflex it was getting better till last night she avis yellow drainage started to come from umbilical laceration. The area also started to split open. She has been cleaning the area once a day. She denies any fever. She denies any history of MRSA. - History of Current Complaint Chief Complaint: EDRashSkinAbscess Time Seen by Provider: 03/29/17 00:24 Stated Complaint: POST SURGERY/POSSIBLE INFECTION Pain Intensity: 8 - Allergy/Home Medications Allergies/Adverse Reactions: Allergies Allergy/AdvReac Type Severity Reaction Status Date / Time Azithromycin [From Zithromax] Allergy Intermediate Rash Verified 03/12/17 13:31 Carbamazepine [From Tegretol] Allergy Intermediate Rash Verified 03/12/17 13:31 Erythromycin Allergy Intermediate Rash Verified 03/12/17 13:31 Fluconazole [From Diflucan] Allergy Intermediate Rash Verified 03/12/17 13:31 Sulfa Drugs Allergy Intermediate Rash Verified 03/12/17 13:31 Adhesive Tape Allergy Rash And Verified 03/12/17 13:31 Itching LATEX Allergy Intermediate Itching Uncoded 03/12/17 13:31 ENVIRONMENTAL Allergy Congestion Uncoded 03/12/17 13:31 PMH/Surg Hx/FS Hx/Imm Hx Cardiovascular History: Reports: Other Cardiovascular Problems/Disorders - heart murmur Respiratory History: Reports: Hx Asthma - pt uses inhalers,, Hx Sleep Apnea - HAS NOT HAD THE SLEEP STUDY SEEN BY SLEEP SPEC SUSPECTED JOSE GI History: Reports: Hx Gastroesophageal Reflux Disease - controlled with medication,, Hx Irritable Bowel - diet controlled, Hx Ulcer - 2013 PT. STATES HEALED, Other GI Disorders - GERD Sensory History: Reports: Hx Contacts or Glasses - WEARS GLASSES Denies: Hx Hearing Aid Opthamlomology History: Reports: Hx Contacts or Glasses - WEARS GLASSES Neurological History: Reports: Hx Migraine - daily medication, not controlled, will be trying Botox injections soon, Other Neuro Impairments/Disorders - EPILEPSEY DX IN CHILD ACEVES Psychiatric History: Reports: Hx Anxiety - controlled with medication, Hx Depression - bi-polar disorder, controlled with medication - Surgical History Surgery Procedure, Year, and Place: bladder distention for interstitial [id number],. laparoscopy 2012. nasal surgery January 2017 Hx Anesthesia Reactions: No Infectious Disease History: No Infectious Disease History: Denies: Traveled Outside the [place] in Last 30 Days - Family History Known Family History: Positive: Other - neg: gallbladder dz - Social History Alcohol Use: Occasionally Alcohol Amount: MIKES HARD LEMONADE 6 PER MONTH Hx Substance Use: Yes Substance Use Type: Reports: Marijuana Substance Use Comment - Amount & Last Used: SMOKES MARIJUANA 1- 2 X DAY Hx Tobacco Use: No Smoking Status (MU): Never Smoked Tobacco Review of Systems Negative: Fever Negative: Chest Pain Negative: Shortness Of Breath Positive: Other - nonhealing surgical wound All Other Systems Reviewed And Are Negative: Yes Physical Exam Triage Information Reviewed: Yes Vital Signs On Initial Exam: Initial Vitals Temp Pulse Resp BP Pulse Ox 97.7 F 103 18 140/113 97 03/28/17 23:36 03/28/17 23:36 03/28/17 23:36 03/28/17 23:36 03/28/17 23:36 Vital Signs Reviewed: Yes Appearance: Positive: Well-Appearing Skin: Positive: Warm, Dry, Other - 1cm wound in belly button with minimial amount of yellow drainage and 1/4cm separation in laceration, minimal surrounding erythema not warm to touch Head/Face: Positive: Normal Head/Face Inspection Eyes: Positive: Normal, Conjunctiva Clear Respiratory/Lung Sounds: Positive: Clear to Auscultation, Breath Sounds Present Cardiovascular: Positive: Normal, RRR Abdomen Description: Positive: Soft, Other: - minimal tenderness around wound Bowel Sounds: Positive: Present Psychiatric: Positive: Normal - [place] Coma Scale Coma Scale Total: 15 Diagnostics - Vital Signs Vital Signs Temp Pulse Resp BP Pulse Ox 03/28/17 23:36 97.7 F 103 18 140/113 97 - Laboratory Lab Results: Lab Results 03/29/17 03/29/17 03/29/17 Range/Units 00:55 00:55 00:55 WBC 8.1 (3.5-10.8) 10^3/ul RBC 4.51 (4.0-5.4) 10^6/ul Hgb 13.1 (12.0-16.0) g/dl Hct 40 (35-47) % MCV 88 (80-97) fL MCH 29 (27-31) pg MCHC 33 (31-36) g/dl RDW 13 (10.5-15) % Plt Count 293 (150-450) 10^3/ul MPV 8 (7.4-10.4) um3 Neut % (Auto) 48.9 (38-83) % Lymph % (Auto) 43.5 (25-47) % Island % (Auto) 5.8 (1-9) % Eos % (Auto) 1.5 (0-6) % Baso % (Auto) 0.3 (0-2) % Absolute Neuts (auto) 3.9 (1.5-7.7) 10^3/ul Absolute Lymphs (auto) 3.5 (1.0-4.8) 10^3/ul Absolute Monos (auto) 0.5 (0-0.8) 10^3/ul Absolute Eos (auto) 0.1 (0-0.6) 10^3/ul Absolute Basos (auto) 0 (0-0.2) 10^3/ul Absolute Nucleated RBC 0 10^3/ul Nucleated RBC % 0 Sodium 139 (133-145) mmol/L Potassium 3.8 (3.5-5.0) mmol/L Chloride 110 (101-111) mmol/L Carbon Dioxide 22 (22-32) mmol/L Anion Gap 7 (2-11) mmol/L BUN 10 (6-24) mg/dL Creatinine 0.86 (0.51-0.95) mg/dL Est GFR ( Amer) 101.0 (>60) Est GFR (Non-Af Amer) 78.6 (>60) BUN/Creatinine Ratio 11.6 (8-20) Glucose 106 H (70-100) mg/dL Lactic Acid 0.9 (0.5-2.0) mmol/L Calcium 9.2 (8.6-10.3) mg/dL Total Bilirubin 0.20 (0.2-1.0) mg/dL AST 18 (13-39) U/L ALT 28 (7-52) U/L Alkaline Phosphatase 60 (34-104) U/L C-React Prot High Sens 3.71 mg/L Total Protein 6.6 (6.4-8.9) g/dL Albumin 4.1 (3.2-5.2) g/dL Globulin 2.5 (2-4) g/dL Albumin/Globulin Ratio 1.6 (1-3) Urine Color Urine Appearance Urine pH (5-9) Ur Specific [place] (1.010-1.030) Urine Protein (Negative) Urine Ketones (Negative) Urine Blood (Negative) Urine Nitrate (Negative) Urine Bilirubin (Negative) Urine Urobilinogen (Negative) Ur Leukocyte Esterase (Negative) Urine Glucose (Negative) 03/29/17 Range/Units 01:05 WBC (3.5-10.8) 10^3/ul RBC (4.0-5.4) 10^6/ul Hgb (12.0-16.0) g/dl Hct (35-47) % MCV (80-97) fL MCH (27-31) pg MCHC (31-36) g/dl RDW (10.5-15) % Plt Count (150-450) 10^3/ul MPV (7.4-10.4) um3 Neut % (Auto) (38-83) % Lymph % (Auto) (25-47) % Island % (Auto) (1-9) % Eos % (Auto) (0-6) % Baso % (Auto) (0-2) % Absolute Neuts (auto) (1.5-7.7) 10^3/ul Absolute Lymphs (auto) (1.0-4.8) 10^3/ul Absolute Monos (auto) (0-0.8) 10^3/ul Absolute Eos (auto) (0-0.6) 10^3/ul Absolute Basos (auto) (0-0.2) 10^3/ul Absolute Nucleated RBC 10^3/ul Nucleated RBC % Sodium (133-145) mmol/L Potassium (3.5-5.0) mmol/L Chloride (101-111) mmol/L Carbon Dioxide (22-32) mmol/L Anion Gap (2-11) mmol/L BUN (6-24) mg/dL Creatinine (0.51-0.95) mg/dL Est GFR ( Amer) (>60) Est GFR (Non-Af Amer) (>60) BUN/Creatinine Ratio (8-20) Glucose (70-100) mg/dL Lactic Acid (0.5-2.0) mmol/L Calcium (8.6-10.3) mg/dL Total Bilirubin (0.2-1.0) mg/dL AST (13-39) U/L ALT (7-52) U/L Alkaline Phosphatase (34-104) U/L C-React Prot High Sens mg/L Total Protein (6.4-8.9) g/dL Albumin (3.2-5.2) g/dL Globulin (2-4) g/dL Albumin/Globulin Ratio (1-3) Urine Color Yellow Urine Appearance Clear Urine pH 7.0 (5-9) Ur Specific [place] 1.015 (1.010-1.030) Urine Protein Negative (Negative) Urine Ketones Negative (Negative) Urine Blood Negative (Negative) Urine Nitrate Negative (Negative) Urine Bilirubin Negative (Negative) Urine Urobilinogen Negative (Negative) Ur Leukocyte Esterase Negative (Negative) Urine Glucose Negative (Negative) Result Diagrams: 03/29/17 00:55 03/29/17 00:55 Lab Statement: Any lab studies that have been ordered have been reviewed, and results considered in the medical decision making process. Course/Dx - Course Course Of Treatment: 26F presents with wound dehiscence that got worst last night. She had her gallbladder removed laparoscopical on Mar [address] Keys. Her wound became infected last week so she was placed on keflex it was getting better till last night she avis yellow drainage started to come from umbilical laceration. The area also started to split open. She has been cleaning the area once a day. She denies any fever. She denies any history of MRSA. on exam minimial dehiscence of wound with minimial surrounding erythema. labs normal. discussed with dr alexander said can just follow up with surgery. discussed with patient and said can wait till get wound culture or add doxy for MRSA coverage? patient wants to add doxy. patient will follow up with surgery. patient understands and agrees with plan. - Differential Diagnoses - Skin Complaint Differential Diagnoses: Abscess, Cellulitis, Other - dehiscence - Diagnoses Provider Diagnoses: Surgical wound dehiscence Discharge - Discharge Plan Condition: Stable Disposition: HOME Prescriptions: DOXYcycline CAP(*) [DOXYcycline 100MG CAP(*)] 100 mg PO BID #19 cap Patient Education Materials: Wound Dehiscence (ED) Referrals: Eliana Keys MD [Medical Doctor] - Young Borden MD [Primary Care Provider] - Additional Instructions: Take doxcycline twice a day for 10 days Take with food, use sunscreen when go outside Follow up with surgery as scheduled Return to ED if develop fever or any new or worsening symptoms
[2017-03-29 02:48] VITALS: BP 139/77
--- NOTE | 2017-03-31 10:02 | PN ---
Progress Note - Progress Note Date of Service: 03/31/17 Note: Patient preliminary wound culture grew Pseudomonas aeruginosa. patient placed on doxcycline which is not sensitive. sent script for levaquin 500mg daily for 10 days. left vm telling to stop doxycyline and change to levaquin.
== END 2017-03-29 02:48 | disposition home or self-care (01) ==
LOC: ED 23:32
DX: T81.30XA Disruption of wound, unspecified, initial encounter (principal); T81.89XA Other complications of procedures, not elsewhere classified, initial encounter; L02.91 Cutaneous abscess, unspecified; L03.90 Cellulitis, unspecified
CPT/HCPCS: 36415; 80053; 81003; 83605; 85025; 86141; 87040; 87070; 87077; 87186; 87205; 99282; A9270-GY